=== PATIENT | male | born 1995 | race Caucasian/White ===

== ENCOUNTER 2016-11-23 14:36 | Emergency (ER) | payer SELFPAY ==
[2016-11-23 15:56] LABS: APPEARANCE CLOUDY (CLEAR); BILIRUBIN NEGATIVE (NEGATIVE); COLOR YELLOW (YELLOW); GLUCOSE NEGATIVE (NEGATIVE); KETONE MODERATE mg/dL (NEGATIVE); LEUKOCYTE ESTERASE 2+ (NEGATIVE); NITRITE NEGATIVE (NEGATIVE); PROTEIN 1+ mg/dL (NEGATIVE); UROBILINOGEN NORMAL (NORMAL); WHITE CELLS - URINE 25-50 /hpf (0-5)
[2016-11-23 15:57] LABS: BACTERIA MANY /hpf (NONE SEEN); EPITHELIAL CELLS 0-5 /hpf (0-5); RED CELLS - URINE 0-5 /hpf (0-5)
== END 2016-11-23 22:12 | disposition home or self-care (01) ==
LOC: D.ER 14:36
PROVIDERS: Emergency Medicine
DX: N34.2 Other urethritis (principal)

== ENCOUNTER 2016-12-03 08:25 | Emergency (ER) | payer SELFPAY | END 2016-12-03 09:22 | disposition home or self-care (01) | LOC: D.ER 08:25 | DX: S69.92XA Unspecified injury of left wrist, hand and finger(s), initial encounter (principal); W22.8XXA Striking against or struck by other objects, initial encounter; Y93.89 Activity, other specified; Y92.89 Other specified places as the place of occurrence of the external cause ==

== ENCOUNTER 2017-08-04 11:58 | Emergency (ER) | payer MEDICAID ==
[2017-08-07 22:08] LABS: CHLAMYDIA TRACHOMATIS, NAA Negative (Negative)
== END 2017-08-04 13:20 | disposition home or self-care (01) ==
LOC: D.ER 11:58
PROVIDERS: Nurse Practitioner Family
DX: Z20.2 Contact with and (suspected) exposure to infections with a predominantly sexual mode of transmission (principal); F17.200 Nicotine dependence, unspecified, uncomplicated

== ENCOUNTER 2017-12-21 10:34 | Emergency (ER) | payer MEDICAID ==
[~2017-12-21] VITALS: Ht 182.9 cm; Wt 70.5 kg
[2017-12-21 11:00] VITALS: Ht 182.9 cm; Wt 70.5 kg
[2017-12-21] MEDS ORDERED: VOLTAREN75 MG PO (12:56)
[2017-12-21] MEDS ORDERED: ROBAXIN-750750 MG PO (12:56)
[2017-12-21 13:16] VITALS: BP 140/70
== END 2017-12-21 13:18 | disposition home or self-care (01) ==
LOC: D.ER 10:34
DX: S16.1XXA Strain of muscle, fascia and tendon at neck level, initial encounter (principal); V49.9XXA Car occupant (driver) (passenger) injured in unspecified traffic accident, initial encounter; Y93.89 Activity, other specified; Y92.410 Unspecified street and highway as the place of occurrence of the external cause; M62.838 Other muscle spasm; F17.200 Nicotine dependence, unspecified, uncomplicated